=== PATIENT | female | born 1990 | race Caucasian/White ===

== ENCOUNTER 2017-12-14 17:36 | Emergency (ER) | payer OTHER ==
--- NOTE | 2017-12-14 18:44 | XRAY Report ---
Reason: pain Procedure Date: 12/14/2017 Accession Number: [id number] / [id number] Procedure: XR - Ankle 3 View LT CPT Code: FULL RESULT: EXAM: LEFT ANKLE RADIOGRAPHY EXAM DATE: 12/14/2017 06:14 PM. CLINICAL HISTORY: Posterior left ankle pain for 2 months. No known trauma. Increased degree of pain today. COMPARISON: None. TECHNIQUE: 3 views. FINDINGS: Bones: Normal. No fractures or bone lesions. Joints: Normal. No effusion. No subluxations. The ankle mortise is normally aligned. Soft Tissues: Normal. No soft tissue swelling. IMPRESSION: Normal ankle radiography. [facility]
[2017-12-14] MEDS ORDERED: NAPROXEN 250 MG TABLET PO STA (19:53)
--- NOTE | 2017-12-14 20:23 | ED Physician Documentation ---
PD HPI LOWER EXT INJURY - Stated complaint Stated Complaint: LEFT FOOT/ANKLE PAIN - Chief complaint Chief Complaint: Ext Problem - History obtained from History obtained from: Patient - History of Present Illness PD HPI LOW EXT INJURY LOCATION: Left, Ankle (heel posteriorly) Type of injury: No: Fall, Twist Where injury occurred: Work (had gotten new boots for work and started having pain in achilles/heel area. This has persisted and gotten more consistent. Last week or so, pain with walking and stretching of the ankle.) Timing - onset: How many months ago (2) Timing - duration: Months (2) Timing - details: Gradual onset, Still present, Constant Worsened by: Moving, Palpating Associated symptoms: No: Weakness, Numbness, Swelling Similar symptoms before: Has not had sx before Review of Systems Constitutional: denies: Fever, Chills Skin: denies: Rash, Lesions, Abrasion (s) Neurologic: denies: Focal weakness, Numbness PD PAST MEDICAL HISTORY - Past Medical History Past Medical History: No - Past Surgical History Past Surgical History: No - Present Medications Home Medications: Ambulatory Orders Medication Instructions Recorded Confirmed Naproxen 375 mg PO BID #20 tablet 12/14/17 Tramadol HCl 50 mg PO Q6H PRN #20 tablet 12/14/17 - Allergies Allergies/Adverse Reactions: Allergies Allergy/AdvReac Type Severity Reaction Status Date / Time No Known Drug Allergies Allergy Verified 12/14/17 18:00 - Social History Does the pt smoke?: No Smoking Status: Former smoker Does the pt drink ETOH?: Yes ETOH Use: Wine Does the pt have substance abuse?: No - Immunizations Immunizations are current?: Yes - POLST Patient has POLST: No PD ED PE NORMAL - Vitals Vital signs reviewed: Yes - General General: Alert and oriented X 3, No acute distress, Well developed/nourished - Derm Derm: Normal color, Warm and dry, No rash - Extremities Extremities: Other (the mid to distal achilles area is tender without redness nor effusion. There is crepitance in achilles sheath with ROM of the ankle c.w tendonitis. Plantar heel is not tender. ) Results - Vitals Vitals: Oxygen O2 Source Room air PD MEDICAL DECISION MAKING - ED course Complexity details: considered differential (seems like achilles tendonitis gradual development and persistent. Will have her use walking boot but to add heel cup for slight lift. ), d/w patient - Sepsis Event Vital Signs: Oxygen O2 Source Room air Departure - Departure Disposition: 01 Home, Self Care Clinical Impression: Achilles tendonitis Qualifiers: Laterality: left Qualified Code(s): M76.62 - Achilles tendinitis, left leg Condition: Stable Record reviewed to determine appropriate education?: Yes Instructions: Achilles Tendonitis Follow-Up: FATUMA Barton [Provider Group] Prescriptions: Naproxen 375 mg PO BID #20 tablet Tramadol HCl 50 mg PO Q6H PRN #20 tablet PRN Reason: Pain Comments: Use the walking boot and obtain a heel cup so that it lives here heal a bit to change the angle and tension on the Achilles. Crutches as needed for partial weightbearing to no weightbearing for comfort. Naproxen twice daily for the next 7-10 days. Add Tylenol or tramadol if needed for pain. Follow-up with primary care in about a week to see how much improvement it is had. Forms: Activity restrictions Discharge Date/Time: 12/14/17 20:34
[2017-12-14 20:33] VITALS: BP 121/86
== END 2017-12-14 20:34 | disposition home or self-care (01) ==
LOC: ED 17:36
DX: M76.62 Achilles tendinitis, left leg (principal); Z87.891 Personal history of nicotine dependence
CPT/HCPCS: 73610; 99283; A9270